=== PATIENT | female | born 1995 | race Caucasian/White ===

== ENCOUNTER 2017-04-18 23:22 | Emergency (ER) | payer OTHER ==
[2017-04-18 23:23] VITALS: BP 136/84; PULSE 76; RESP 16; TEMP 98.7; O2SAT 98
[2017-04-18] MEDS ORDERED: ZOLO50TA PO (23:40)
[2017-04-18] MEDS ORDERED: SODIUM CHLOR 0.9% 1000 ML INJ 1,000 ML IV ONE (23:45)
[2017-04-18] MEDS ORDERED: SODIUM CHLORIDE 0.9% FLUSH 10 ML FLUSH IV FLUSH PRN (23:45)
[2017-04-18] MEDS ORDERED: KETOROLAC TROMETHAMINE 30 MG/ML (IVP) VIAL IV PUSH ONE (23:45)
[2017-04-18] MEDS ORDERED: ONDANSETRON HCL 4 MG/2 ML VIAL IV PUSH ONE (23:45)
[2017-04-19 00:01] LABS: BASOPHIL % 0.8 % (0.0-2.0); EOSINOPHIL # 0.2 TH/MM3 (0-0.4); EOSINOPHIL % 2.7 % (0.0-4.0); HEMATOCRIT 40.1 % (35.0-46.0); HEMOGLOBIN 13.3 GM/DL (11.6-15.3); LYMPH % 39.2 % (9.0-44.0); LYMPHOCYTE # 2.5 TH/MM3 (1.0-4.8); MEAN CELL VOLUME 86.8 FL (80.0-100.0); MEAN CORPUSCULAR HEMOGLOBIN 28.8 PG (27.0-34.0); MEAN CORPUSCULAR HGB CONC 33.1 % (32.0-36.0); MEAN PLATELET VOLUME 8.3 FL (7.0-11.0); MONO % 9.5 % (0.0-8.0); MONOCYTE # 0.6 TH/MM3 (0-0.9); NEUT % 47.8 % (16.0-70.0); PLATELET COUNT 275 TH/MM3 (150-450); RED BLOOD COUNT 4.62 MIL/MM3 (4.00-5.30); RED CELL DISTRIBUTION WIDTH 14.2 % (11.6-17.2); WHITE BLOOD COUNT 6.4 TH/MM3 (4.0-11.0)
[2017-04-19] MEDS ORDERED: DIATRIZOATE MEGLUM/DIATRIZOATE SOD 9 ML CUP ONE (00:14)
[2017-04-19 00:29] LABS: BACTERIA, URINE OCC /hpf; BILIRUBIN, URINE NEG (NEG); BLOOD, URINE SMALL (NEG); GLUCOSE,URINE NEG (NEG); KETONE, URINE NEG (NEG); NITRITE,URINE NEG (NEG); PH, URINE 6.5 (5.0-8.5); SQUAMOUS EPITHELIAL CELL URINE 1 /hpf (0-5); URINE COLOR COLORLESS (YELLW/STRAW); URINE LEUKOCYTE ESTERASE NEG (NEG)
[2017-04-19 00:31] LABS: ALBUMIN 4.3 GM/DL (3.4-5.0); ALT (GPT) 22 U/L (10-53); AST (GOT) 20 U/L (15-37); BICARBONATE 28.2 MEQ/L (21.0-32.0); BLOOD UREA NITROGEN 9 MG/DL (7-18); CHLORIDE 107 MEQ/L (98-107); CREATININE 0.76 MG/DL (0.50-1.00); GLOMERULAR FILTRATION RATE 94 ML/MIN (>89); GLUCOSE,RANDOM 89 MG/DL (74-106); LIPASE 79 U/L (73-393); SODIUM (NA) 142 MEQ/L (136-145)
[2017-04-19 00:35] LABS: ALKALINE PHOSPHATASE 70 U/L (45-117); TOTAL BILIRUBIN ADULT 0.3 MG/DL (0.2-1.0); TOTAL PROTEIN 7.6 GM/DL (6.4-8.2)
[2017-04-19] MEDS ORDERED: IOHEXOL 350 MG/ML 10 ML VIAL (for RAD DIAG) IVCONTRAST ONE (01:52)
--- NOTE | 2017-04-19 02:03 | RADRPT ---
EXAM DATE/TIME: 04/19/2017 01:35 [facility] COMPARISON: No previous studies available for comparison. INDICATIONS : Right lower quadrant pain x2 days. IV CONTRAST: 100 cc Omnipaque 350 (iohexol) IV ORAL CONTRAST: Prescribed oral contrast ingested. RADIATION DOSE: 6.67 CTDIvol (mGy) MEDICAL HISTORY : None SURGICAL HISTORY : None. ENCOUNTER: Initial ACUITY: 2 days PAIN SCALE: 7/10 LOCATION: Right lower quadrant TECHNIQUE: Volumetric scanning of the abdomen and pelvis was performed. Using automated exposure control and ad justment of the mA and/or kV according to patient size, radiation dose was kept as low as reasonably achievable to obtain optimal diagnostic quality images. DICOM format image data is available electro nically for review and comparison. FINDINGS: LOWER LUNGS: The visualized lower lungs are clear. LIVER: Homogeneous density without lesion. There is no dilation of the biliary tree. No calcified gallston es. SPLEEN: Normal size without lesion. PANCREAS: Within normal limits. KIDNEYS: Normal in size and shape. There is no mass, stone or hydronephrosis. ADRENAL GLANDS: Within normal limits. VASCULAR: There is no aortic aneurysm. BOWEL/MESENTERY: The stomach, small bowel, and colon demonstrate no acute abnormality. There is no free intraperitone al air or fluid. The appendix is unremarkable. No inflammatory changes. Distal frontal colon. ABDOMINAL WALL: Within normal limits. RETROPERITONEUM: There is no lymphadenopathy. BLADDER: No wall thickening or mass. REPRODUCTIVE: Within normal limits. INGUINAL: There is no lymphadenopathy or hernia. MUSCULOSKELETAL: Within normal limits for patient age. CONCLUSION: Unremarkable examination of the abdomen and pelvis. Benedicto Singh MD on April 19, 2017 at 1:57 Board Certified Radiologist. This report was verified electronically.
[2017-04-19 02:44] VITALS: BP 116/69
--- NOTE | 2017-04-19 03:02 | PD ---
HPI . Abdominal pain Chief Complaint: Abdominal Pain Time Seen by Provider: 23:32 Travel History International Travel<30 days: No Contact w/Intl Traveler<30days: No Traveled to known affect area: No History of Present Illness HPI 22-year-old female no slipping past medical history complains of right-sided abdominal pain is quite severe, the patient is nauseous and generally ill feeling. Patient has loss of appetite as well. No quantified fever. Symptoms been occurring over the past several hours. Patient denies any dysuria urgency frequency, diarrhea, vaginal bleeding or discharge. PFSH Past Medical History Narrative Medical Patient denies any significant past medical history Medical History: Denies Significant Hx Diminished Hearing: No ?: Not LMP: 03/18/17 Past Surgical History Surgical History: No Previous Surgery Social History Alcohol Use: No Tobacco Use: No Substance Use: No Allergies-Medications (Allergen,Severity, Reaction): Coded Allergies: No Known Allergies (Unverified , 04/18/17) Reported Meds & Prescriptions Reported Meds & Active Scripts Active Reported Zoloft (Sertraline HCl) 50 Mg Tab 50 Mg PO DAILY Narrative Medication Allergies and medications reviewed Review of Systems Except as stated in HPI: all other systems reviewed are Neg General / Constitutional: No: Fever Eyes: No: Visual changes HENT: No: Headaches Cardiovascular: No: Chest Pain or Discomfort Respiratory: No: Shortness of Breath Gastrointestinal: Positive: Nausea, Abdominal Pain, No: Vomiting, Diarrhea, Hematemesis, Hematochezia, Constipation Genitourinary: No: Urgency, Frequency, Dysuria, Hematuria, Discharge, Vaginal Bleeding Musculoskeletal: No: Pain Skin: No Rash Neurologic: No: Weakness Psychiatric: No: Depression Endocrine: No: Polydipsia Hematologic/Lymphatic: No: Easy Bruising Physical Exam Narrative GENERAL: Awake alert oriented 3 no acute distress SKIN: Warm and dry. Color is sallow, no diaphoresis cyanosis or pallor HEAD: Atraumatic. Normocephalic. EYES: Pupils equal and round. No scleral icterus. No injection or drainage. ENT: No nasal bleeding or discharge. Mucous membranes pink and moist. NECK: Trachea midline. No JVD. Supple full range of motion CARDIOVASCULAR: Regular rate and rhythm. RESPIRATORY: No accessory muscle use. Clear to auscultation. Breath sounds equal bilaterally. GASTROINTESTINAL: Abdomen soft, tender right lower quadrant and somewhat right upper quadrant, positive Rovsing sign, positive psoas sign nondistended. Hepatic and splenic margins not palpable. MUSCULOSKELETAL: Extremities without clubbing, cyanosis, or edema. No obvious deformities. NEUROLOGICAL: Awake and alert. No obvious cranial nerve deficits. Motor grossly within normal limits. Five out of 5 muscle strength in the arms and legs. Normal speech. PSYCHIATRIC: Appropriate mood and affect; insight and judgment normal. Data Data Last Documented VS Vital Signs Date Time Temp Pulse Resp B/P (MAP) Pulse Ox O2 Delivery O2 Flow Rate FiO2 04/19/17 02:44 66 16 116/69 (85) 97 04/18/17 23:23 98.7 Orders Orders Beta Hcg (Quant/Titer) (04/18/17 23:32) Complete Blood Count With Diff (04/18/17 23:32) Comprehensive Metabolic Panel (04/18/17 23:32) Lipase (04/18/17 23:32) Urinalysis - C+S If Indicated (04/18/17 23:32) Iv Access Insert/Monitor (04/18/17 23:32) Sodium Chloride 0.9% Flush (Ns Flush) (04/18/17 23:45) Ketorolac Inj (Toradol Inj) (04/18/17 23:45) Ondansetron Inj (Zofran Inj) (04/18/17 23:45) Ct Abd/Pel W Iv Contrast(Rout) (04/18/17 ) Sodium Chlor 0.9% 1000 Ml Inj (Ns 1000 M (04/18/17 23:45) Oral Contrast - Adult (04/18/17 23:51) Diatrizoate Liq ( Gastroview Liq) (04/19/17 00:14) Iohexol 350 Inj (Omnipaque 350 Inj) (04/19/17 01:52) Labs Laboratory Tests Test 04/18/17 23:40 04/18/17 23:45 White Blood Count 6.4 TH/MM3 Red Blood Count 4.62 MIL/MM3 Hemoglobin 13.3 GM/DL Hematocrit 40.1 % Mean Corpuscular Volume 86.8 FL Mean Corpuscular Hemoglobin 28.8 PG Mean Corpuscular Hemoglobin Concent 33.1 % Red Cell Distribution Width 14.2 % Platelet Count 275 TH/MM3 Mean Platelet Volume 8.3 FL Neutrophils (%) (Auto) 47.8 % Lymphocytes (%) (Auto) 39.2 % Monocytes (%) (Auto) 9.5 % Eosinophils (%) (Auto) 2.7 % Basophils (%) (Auto) 0.8 % Neutrophils # (Auto) 3.0 TH/MM3 Lymphocytes # (Auto) 2.5 TH/MM3 Monocytes # (Auto) 0.6 TH/MM3 Eosinophils # (Auto) 0.2 TH/MM3 Basophils # (Auto) 0.0 TH/MM3 CBC Comment DIFF FINAL Differential Comment Blood Urea Nitrogen 9 MG/DL Creatinine 0.76 MG/DL Random Glucose 89 MG/DL Total Protein 7.6 GM/DL Albumin 4.3 GM/DL Calcium Level 9.0 MG/DL Alkaline Phosphatase 70 U/L Aspartate Amino Transf (AST/SGOT) 20 U/L Alanine Aminotransferase (ALT/SGPT) 22 U/L Total Bilirubin 0.3 MG/DL Sodium Level 142 MEQ/L Potassium Level 3.5 MEQ/L Chloride Level 107 MEQ/L Carbon Dioxide Level 28.2 MEQ/L Anion Gap 7 MEQ/L Estimat Glomerular Filtration Rate 94 ML/MIN Lipase 79 U/L Human Chorionic Gonadotropin, Quant LESS THAN 1 MIU/ML Urine Color COLORLESS Urine Turbidity CLEAR Urine pH 6.5 Urine Specific [place] 1.002 Urine Protein NEG mg/dL Urine Glucose (UA) NEG mg/dL Urine Ketones NEG mg/dL Urine Occult Blood SMALL Urine Nitrite NEG Urine Bilirubin NEG Urine Urobilinogen LESS THAN 2.0 MG/DL Urine Leukocyte Esterase NEG Urine RBC 1 /hpf Urine WBC 2 /hpf Urine Squamous Epithelial Cells 1 /hpf Urine Bacteria OCC /hpf Microscopic Urinalysis Comment CULT NOT INDICATED MDM Medical Decision Making Medical Screen Exam Complete: Yes Emergency Medical Condition: Yes Medical Record Reviewed: Yes Differential Diagnosis Acute appendicitis, cholecystitis, colitis Narrative Course Laboratory examinations reviewed, no significant abnormalities CT abdomen and pelvis, appendix normal, gallbladder normal, no acute intra- abdominal pathology. Or drugs stool proximal: Diagnosis Primary Impression: Abdominal pain Qualified Codes: R10.9 - Unspecified abdominal pain Additional Impression: Constipation Qualified Codes: K59.00 - Constipation, unspecified Patient Instructions: Abdominal Pain (ED), Constipation (ED), General Instructions Departure Forms: Tests/Procedures Additional Instructions: [id number] laxatives as directed as discussed. Follow-up with your doctor. Return for worsening Disposition: 01 DISCHARGE HOME Condition: Stable Catracho Dawson MD Apr 19, 2017 03:02
== END 2017-04-19 03:07 | disposition home or self-care (01) ==
LOC: NEPE 23:22
DX: R10.31 Right lower quadrant pain (principal); K59.00 Constipation, unspecified; R11.0 Nausea
CPT/HCPCS: 74177; 80053; 81001; 83690; 84702; 85025; 96374; 96375; 99285; J1885; J2405; J7030; Q9963; Q9967

== ENCOUNTER 2017-07-26 19:15 | Emergency (ER) | payer OTHER ==
[~2017-07-26 19:15] MED LIST: ZOLO50TA PO
[2017-07-26] MEDS ORDERED: SODIUM CHLORIDE 0.9% FLUSH 10 ML FLUSH IVF PRN (19:30)
[2017-07-26] MEDS ORDERED: methylPREDNISolone SOD SUCC 125 MG/2 ML VIAL IV PUSH ONE (19:30)
[2017-07-26] MEDS ORDERED: RESP: ALBUTEROL 2.5 MG/IPRATROPIUM 0.5 MG NEB (SCH) INH ONE (19:30)
[2017-07-26] MEDS: RESP: ALBUTEROL 2.5 MG/3 ML NEB (SCH) INH ×2 (19:32→19:33)
[2017-07-26 19:39] VITALS: RESP 18; O2SAT 97
[2017-07-26 19:41] VITALS: BP 142/85; PULSE 83; RESP 18; TEMP 98.7; O2SAT 99
--- NOTE | 2017-07-26 20:13 | RADRPT ---
EXAM DATE/TIME: 07/26/2017 19:36 [facility] COMPARISON: No previous studies available for comparison. INDICATIONS : Shortness of breath. MEDICAL HISTORY : None. SURGICAL HISTORY : None. ENCOUNTER: Initial ACUITY: 3 days PAIN SCORE: 0/10 LOCATION: chest FINDINGS: A single view of the chest demonstrates the lungs to be symmetrically aerated without evidence of mas s, infiltrate or effusion. The cardiomediastinal contours are unremarkable. Osseous structures are intact. CONCLUSION: No acute disease. Michael Doe MD on July 26, 2017 at 20:11 Board Certified Radiologist. This report was verified electronically.
--- NOTE | 2017-07-26 21:01 | PD ---
HPI Chief Complaint: Respiratory Symptoms Time Seen by Provider: 19:18 Travel History International Travel<30 days: No Contact w/Intl Traveler<30days: No Traveled to known affect area: No History of Present Illness HPI 22-year-old female with no significant past medical history other than reactive airways disease as a child, presented with plaints of shortness of breath and chest tightness and palpitations. Patient states she has had it for the last 1- 2 days. There is no reported fevers, chills. There is no reported productive cough. The patient has had no recent history of asthma attacks or reactive airway disease episodes. She reports that she feels anxious. She does occasionally smoke cigarettes. She denies any long car or plane rides. She denies any control pill usage. She denies any previous history of blood clots or history of trauma to the legs. PFSH Past Medical History Diminished Hearing: No Medical other: Yes (ENDOMETRIOSIS) Immunizations Current: Yes ?: Not Past Surgical History Surgical History: No Previous Surgery Social History Alcohol Use: Yes (RARELY) Tobacco Use: No Substance Use: No Allergies-Medications (Allergen,Severity, Reaction): Coded Allergies: No Known Allergies (Unverified , 07/26/17) Reported Meds & Prescriptions Reported Meds & Active Scripts Active Reported Zoloft (Sertraline HCl) 50 Mg Tab 50 Mg PO DAILY Review of Systems Except as stated in HPI: all other systems reviewed are Neg General / Constitutional: No: Fever, Chills HENT: No: Headaches, Neck Pain Cardiovascular: Positive: Palpitations, No: Chest Pain or Discomfort Respiratory: Positive: Shortness of Breath, Wheezing, No: Cough Gastrointestinal: No: Nausea, Vomiting, Abdominal Pain Genitourinary: No: Dysuria Musculoskeletal: No: Weakness, Pain Neurologic: No: Weakness, Dizziness, Headache Physical Exam Narrative GENERAL: Well-nourished, well-developed patient. SKIN: Focused skin assessment warm/dry. HEAD: Normocephalic/atraumatic. EYES: No scleral icterus. No injection or drainage. NECK: Supple, trachea midline. No JVD or lymphadenopathy. CARDIOVASCULAR: Normal sinus rhythm. Patient does have episodes where she becomes tachycardic. She reports that she feels anxious and feels palpitations. RESPIRATORY: Breath sounds equal bilaterally. No accessory muscle use. MUSCULOSKELETAL: No cyanosis, or edema. NEUROLOGICAL: Awake and alert. Cranial nerves II through XII intact. Motor and sensory grossly within normal limits. Five out of 5 muscle strength in all muscle groups. Normal speech. Data Data Last Documented VS Vital Signs Date Time Temp Pulse Resp B/P (MAP) Pulse Ox O2 Delivery O2 Flow Rate FiO2 07/26/17 19:41 98.7 83 18 142/85 (104) 99 Room Air Orders Orders Iv Access Insert/Monitor (07/26/17 19:21) Ecg Monitoring (07/26/17:21) Oximetry (07/26/17 19:21) Oxygen Administration (07/26/17 19:21) Chest, Single Ap (07/26/17:21) Sodium Chloride 0.9% Flush (Ns Flush) (07/26/17 19:30) Methylprednisolone So Succ Inj (Solumedr (07/26/17 19:30) Albuterol-Ipratropium Neb (Duoneb Neb) (07/26/17 19:30) Albuterol Neb (Albuterol Neb) (07/26/17 19:30) Basic Metabolic Panel (Bmp) (07/26/17 20:34) D-Dimer (07/26/17 20:34) Potassium Chloride Eff (K-Lyte Cl Eff) (07/26/17 22:45) Labs Laboratory Tests Test 07/26/17 21:20 D-Dimer Quantitative (PE/DVT) 0.20 MG/L FEU Blood Urea Nitrogen 9 MG/DL Creatinine 0.78 MG/DL Random Glucose 102 MG/DL Calcium Level 9.1 MG/DL Sodium Level 141 MEQ/L Potassium Level 3.2 MEQ/L Chloride Level 106 MEQ/L Carbon Dioxide Level 26.4 MEQ/L Anion Gap 9 MEQ/L Estimat Glomerular Filtration Rate 92 ML/MIN [facility] Medical Decision Making Medical Screen Exam Complete: Yes Emergency Medical Condition: Yes Differential Diagnosis Bronchitis/reactive airway disease versus pulmonary embolus versus pneumonia Narrative Course 22-year-old female with a history of reactive airway disease as a child, who presents today with complaints of palpitations and tightness with breathing. Patient denies any fevers, chills. There is no reported productive cough. The patient has no significant risk factors for pulmonary embolus. D-dimer was normal. Chest x-ray shows no evidence of acute infiltrate. The patient was given 3 nebulizer treatments. She was also given 125 mg of Solu-Medrol. She will be discharged with a Medrol Dosepak. She is instructed to increase her potassium rich foods. She is instructed to return if she does any worsening symptoms. Diagnosis Primary Impression: Reactive airway disease that is not asthma Additional Impression: Mild hypokalemia Additional Instructions: Increase your potassium rich foods. Return if feeling worse. Follow-up with her primary care physician. Avoid smoke. Disposition: 01 DISCHARGE HOME Condition: Stable Dario To MD Jul 26, 2017 21:01
[2017-07-26 22:22] LABS: BICARBONATE 26.4 MEQ/L (21.0-32.0); CALCIUM 9.1 MG/DL (8.5-10.1); CREATININE 0.78 MG/DL (0.50-1.00)
[2017-07-26] MEDS ORDERED: MEDR4PAK PO (22:36)
[2017-07-26] MEDS ORDERED: POTASSIUM CHLORIDE 25 MEQ EFFERVESCENT TAB PO ONE (22:45)
== END 2017-07-26 23:02 | disposition home or self-care (01) ==
LOC: NEPE 19:15
DX: J98.9 Respiratory disorder, unspecified (principal); E87.6 Hypokalemia; R00.2 Palpitations; Z72.0 Tobacco use; Z79.899 Other long term (current) drug therapy
CPT/HCPCS: 71045; 80048; 85379; 94640; 94664; 96374; 99284; J2930; J7613